=== PATIENT | female | born 1960 | race Caucasian/White ===

== ENCOUNTER → 2021-11-27 | Outpatient (CLI) | payer OTHER ==
[2021-11-27] VITALS (11 sets, daily range): BP systolic 100–136; BP diastolic 43–82; PULSE 65–77; TEMP 98.1
[~2021-11-27] VITALS: Ht 160 cm; Wt 116.5 kg
[~2021-11-27] MED LIST: CELEXA40 MG PO; CLONAZEPAM0.5 M1 PO; COMBIVENT INH14.7 GM IH; COZAAR 50MG50 MG/TAB PO; HCTZ 25MG TAB25 MG PO; HCTZ 25MG25 MG PO; KLONOPIN WAFER0.5 MG PO; PREDNISONE20 MG PO; PROTONIX 40MG T40 MG PO; SINGULAIR10 MG PO
--- NOTE | 2021-11-27 08:00 | NUR ---
PT WAS GIVEN 1 MG VERSED AND 50 MG FENTANYL ABIGAIL SANCHEZ
== END ==
LOC: COL.RAD 07:00
DX: N28.1 Cyst of kidney, acquired (principal)
CPT/HCPCS: J2250; J3010

== ENCOUNTER 2022-05-13 10:07 | Day surgery (SDC) | payer OTHER ==
[2022-05-13] VITALS (11 sets, daily range): BP systolic 140–181; BP diastolic 67–87; PULSE 73–97; TEMP 97.3–98.7
[~2022-05-13] VITALS: Ht 160 cm; Wt 105.1 kg
[2022-05-13] MEDS ORDERED: PROTONIX 40MG T40 MG PO (10:37)
--- NOTE | 2022-05-13 17:15 | NUR ---
Pt. was able to eat a small amount of dinner without nausea or vomiting.
--- NOTE | 2022-05-13 19:26 | NUR ---
SHIFT REPORT FROM JAKOB CELESTE. PATIENT IN CHAIR ON ROOM ENTRY. ALERT AND ORIENTED. AT BEDSIDE. PATIENT REQUESTING TO GET IN BED, SBA BACK TO BED. ABD LAPS CDI AND ELLI. EISENBERG TO DD WITH CLEAR YELLOW OUTPUT. INT TO L HAND WAS PULLED OUT ON TRANSFER. HS MEDS PER EMAR. C/O PAIN AT 9/10 TO L ABD AND BACK AND MOTRIN WAS GIVEN WITH HS MEDS. DENIES ADDITIONAL NEEDS. CALL LIGHT IN REACH.
[2022-05-14 03:40] VITALS: BP 128/59; PULSE 91; TEMP 98.5
--- NOTE | 2022-05-14 06:33 | NUR ---
EISENBERG CATHETER REMOVED PER ORDER. 10 MLS REMOVED FROM BALLOON. PATIENT TOLERATED PROCEDURE.
[2022-05-14 07:21] VITALS: BP 126/60; PULSE 82; TEMP 98.6
--- NOTE | 2022-05-14 07:50 | NUR ---
Patient resting in bed. She was up to chair for breakfast & did well. Denies nausea. We ambulated hallways with her spouse. She did well. Grace was removed this am, she attempted to void, but not yet able too. Abdomen soft, reports passing flatus. Incisions open to air, edges well approximated. Patient complains of a headache this am, tyelnol given, denies the need for stronger pain medication at this time. Will monitor
--- NOTE | 2022-05-14 09:06 | NUR ---
EDSON met with the patient and her , Josh (ph#[phone]), to discuss discharge plan. The patient lives in [place] with her . She reports independence with ADLs and does not have any DME. The patient receives primary care at the [facility] and states that she normally sees Erma Cano. She obtains her medications from [facility]. The patient does not have a DPOA-HC, but she was interested in obtaining a form. EDSON provided. The patient plans to return home with her upon discharge. No additional needs at this time. *Discharge plan: home with *
--- NOTE | 2022-05-14 10:32 | NUR ---
Patient ready for discharge. She was given all instructions. Follow up appts reviewed. Insision cares, activity restrictions, diet, and signs and symptoms to call doctor discussed. Patient dressed, her spouse taking her home. Patient given pain pill in anticipation of "bumpy" ride home. Patient knows to call with any questions or concerns. Patient has also voided x2 without difficuly post bains removal.
== END 2022-05-14 10:36 | disposition home or self-care (01) ==
LOC: SDCO 10:07 → SURG 15:38 → SDCO 05-14 10:36
DX: D26.1 Other benign neoplasm of corpus uteri (principal); N73.6 Female pelvic peritoneal adhesions (postinfective); N80.9 Endometriosis, unspecified; N88.8 Other specified noninflammatory disorders of cervix uteri; N84.0 Polyp of corpus uteri; N83.312 Acquired atrophy of left ovary; N83.311 Acquired atrophy of right ovary; G89.29 Other chronic pain
CPT/HCPCS: OP; J0360; J0461; J0690; J1100; J1170; J1885; J2405; J2704; J2710; J3010; J7120